=== PATIENT | female | born 1975 | race Caucasian/White ===

== ENCOUNTER 2016-04-21 16:13 | Emergency (ER) | payer OTHER ==
[~2016-04-21 16:13] MED LIST: METO25TA6 PO
[2016-04-21 16:28] VITALS: BP 165/89; PULSE 86; RESP 20; O2SAT 97
--- NOTE | 2016-04-21 17:35 | DRSVH ---
PROCEDURE: X-RAY LUMBAR SPINE, 2 OR 3 VIEW INDICATIONS: pain, worsening symptoms TECHNIQUE: 3 views of the lumbar spine were acquired. COMPARISON: None. FINDINGS: Bones: 5 [id number] vertebrae are present. There is normal bony alignment. No vertebral body c ompression fractures. No suspicious bony lesions. There is moderately severe degenerative disc dise ase and facet osteoarthritis at L5-S1, without subluxation. Osteophyte formation produces likelihood of significant spinal and foraminal stenosis at this level. Mild to moderate degenerative disc dise ase is present at L4-5. Soft tissues: Overlying bowel gas pattern is normal. No suspicious soft tissue calcifications. Joanna gical clips indicate prior cholecystectomy, note is made of a centrally positioned IUD overlying the pelvis. IMPRESSION: L4-5 and especially L5-S1 degenerative disc disease, with facet osteoarthritis, to the de gree that significant spinal and foraminal stenosis likely is present at least at L5-S1. Dictated by: Miky Corrigan M.D. on 04/21/2016 at 17:34 Approved by: Miky Corrigan M.D. on 04/21/2016 at 17:35
--- NOTE | 2016-04-21 18:43 | ED.REPORT ---
HPI-Back Pain 40 and Over Date of Service Apr 21, 2016 ED Provider: Thanh Madison PA-C Ritu is a otherwise healthy 40-year-old female recently diagnosed with degenerative disc disease at L5-S1 who presents with a chief complaint of lower back pain. She reports her pain in her lower back for the last day associated with radiation into her right leg. She reports that the top of her right foot and big toe feel numb. She has been seeing chiropractor for the last 2 weeks, but recently performed strenuous activity and and found that her back pain was much worse yesterday morning. She finds it very painful to sit or lie down. Denies saddle anesthesia, bowel/bladder dysfunction. Denies fever, chills, malaise, history of diabetes, immunosuppression, back surgery, implanted devices , recent IV drug use. Reports that she is currently being treated with Bactrim for UTI. Denies Nursing Notes Stated Complaint: SEVERE PAIN,LOWER BACK/RIGHT LEG Chief Complaint: Back Pain or Injury Nursing Notes Reviewed: Yes Allergies: Coded Allergies: codeine (Verified Allergy, Mild, Rash,Itching,, 04/21/16) promethazine HCl (Verified Allergy, Mild, Agitation, 04/21/16) Scheduled Prednisone (PredniSONE) 20 Mg Tablet 40 MG PO DAILY Scheduled PRN Metoprolol Tartrate (Metoprolol Tartrate) 25 Mg Tablet 25 MG PO BID PRN PRN palpitations use as needed for symptomatic palpitations oxyCODONE (oxyCODONE) 5 Mg Capsule 5 MG PO Q4H PRN PRN For Pain General Time Seen by MD: 18:41 Chief Complaint Back pain Sudden in Onset?: No Past Medical History Past Medical History Notes: Denies Past Medical History Anxiety attacks Reports: Obesity Past Surgical History Reports: Cholecystectomy Family History Mother and grandmother - early menopause Smoking History Unknown if Ever Smoker Social History Alcohol Use: Denies alcohol use Drug Use: Denies drug use Other Social History: Good social support Ambulatory Status Independent Review of Systems Review of Systems Note: Negative unless stated otherwise in history of present illness Physical Exam General: Well-appearing, obese, moderate distress. Head: Atraumatic, normocephalic. Eyes: No scleral icterus or injection. No discharge. Vision grossly intact. ENT: Voice clear, hearing grossly intact. Respiratory: No respiratory distress, no increased work of breathing. Speaks in complete sentences. Skin: Warm and dry. Neurological: Normal gait, toe walk, heel walk, Romberg. Patellar and Achilles reflexes present and equal B/L. Sensation to sharp touch intact at medial leg, dorsal foot and lateral foot B/L. negative straight leg raise, negative cross straight right leg raise Back: Normal to inspection, no midline spinous process tenderness, mild right SI joint tenderness. Psychological: alert and oriented. Speech appropriate, linear and logical. Behavior appropriate. Initial Vital Signs Vital Signs (First) Date Time Temp Pulse Resp B/P Pulse Ox O2 Delivery O2 Flow Rate FiO2 04/21/16 16:28 36.5 86 20 165/89 97 Room Air Initial VS: Reviewed, Vital signs normal Re-Eval/Medical Decision Med Decision/Clinical Course Otherwise healthy 40-year-old female with a recent diagnosis of degenerative disc disease at L5-S1 presents with lower back pain and right leg radiculopathy. Her pain has been aggravated the last 2 days by strenuous activity. History and physical are reassuring regarding cauda equina syndrome, epidural abscess, subdural hematoma, trauma. Neurological examination is normal. I believe the patient is stable and safe to be discharged home. Provided instructions for [id number] analgesia as well as a small amount of oxycodone to supplement with precautions. Advised primary care follow-up, provided return precautions. Patient under stands the plan and is comfortable with it. Discharge & Departure Impression: Primary Impression: Low back pain Chronicity: acute Back pain laterality: right Sciatica presence: with sciatica Sciatica laterality: sciatica of right side Qualified Code: M54.41 - Lumbago with sciatica, right side Disposition: Home Discharge Condition All VS Reviewed: Yes Condition: Stable Patient Instructions: Lumbar Radiculopathy (ED) Additional Instructions: Evaluation in the emergency department for lower back pain. History and physical are reassuring for emergent neurological condition such as epidural abscess or cauda equina syndrome. History does not suggest that this is likely to be a spinal fracture. Your neurological examination is normal, indicating there is no damage to the nerves in your back. I see no indication to perform additional imaging tests at this time. Treatment is largely symptomatic. Rest is important, especially for the next couple of days, but avoid total bed rest. Reasonable activity as tolerated is the best. Apply ice to the affected area 4 times a day for 20 minutes over the next 24 hours. After that you will probably find warm compresses most helpful. The pain is best treated with 800 mg of ibuprofen (Advil, Motrin) every 6 hours , or 1000 mg of acetaminophen (Tylenol) every 6 hours. These drugs can be taken at the same time for more severe pain. I will provide a prescription for a small amount of oxycodone which you can add to this. Please do not drive or drink alcohol within 4 hours taking this medication I have also given a dose of prednisone here in the emergency department. I am sending you home with a prescription for 4 more days of the same. This will reduce inflammation around the nerve that is causing you pain. Most of all be patient: 70-90% of people with injuries presenting like yours will resolve within 7 weeks, even without treatment. I will give you a referral for primary care provider. Please contact them tomorrow to arrange follow-up in the next week or so to be sure your recovery is progressing as expected. Return the emergency department for new or worsening symptoms such as loss of bowel/bladder control, numbness between your legs, new weakness/ numbness or high fever. Referrals: Gurwinder Perez MD EDSupervising Provider for APC: Fer Gilliam MD copies to: Gurwinder Perez MD, Seth PA-C Apr 21, 2016 18:43
[2016-04-21] MEDS ORDERED: OXYC5CAP4 PO (19:19)
[2016-04-21] MEDS ORDERED: PRE20 PO (19:20)
[2016-04-21] MEDS ORDERED: predniSONE 20 mg Tablet PO ONE (19:25)
[2016-04-21] MEDS ORDERED: Ketorolac 30 mg/mL 2 mL Inj IM ONE (19:25)
== END 2016-04-21 19:39 | disposition home or self-care (01) ==
LOC: SED 16:13
DX: M54.41 Lumbago with sciatica, right side (principal); Z88.5 Allergy status to narcotic agent; Z88.8 Allergy status to other drugs, medicaments and biological substances
CPT/HCPCS: 72100; 96372; 99284; J1885

== ENCOUNTER 2016-05-14 22:29 | Emergency (ER) | payer OTHER ==
[~2016-05-14] VITALS: Ht 165.1 cm; Wt 111.8 kg
[~2016-05-14 22:29] MED LIST changes: +OXYC5CAP4 PO; +PRE20 PO
[2016-05-14 22:42] VITALS: BP 149/65; PULSE 74; RESP 22; O2SAT 99
--- NOTE | 2016-05-14 22:43 | ED.REPORT ---
HPI-Back Pain 40 and Over Date of Service May 14, 2016 ED Provider: Christopher Shin MD A 40 year old female with a history of anxiety and degenerative disc disease at L5-S1 presents to the ED via EMS with lower back pain onset this evening while urinating. She has been experiencing similar pain for several weeks, but the pain tonight was much more severe. EMS found the patient with a BP of 214/98 and a respiration rate of 24. The patient denies numbness, paresthesia, weakness , bowel incontinence, urinary incontinence, recent injury/trauma to the area, or other symptoms. She took Tylenol (2000mg) and Naprosyn (1000mg) at 2100 this evening. She has also taken Oxycodone and Prednisone today. The patient was recently seen in the ED on 04/21/16 with similar symptoms. Nursing Notes Stated Complaint: BACK PAIN Chief Complaint: Back Pain or Injury Nursing Notes Reviewed: Yes Allergies: Coded Allergies: codeine (Verified Allergy, Mild, Rash,Itching,, 04/21/16) promethazine HCl (Verified Allergy, Mild, Agitation, 04/21/16) Scheduled Prednisone (PredniSONE) 20 Mg Tablet 40 MG PO DAILY Scheduled PRN Methocarbamol (Robaxin-750) 750 Mg Tablet 750 MG PO QID PRN PRN For Spasm Metoprolol Tartrate (Metoprolol Tartrate) 25 Mg Tablet 25 MG PO BID PRN PRN palpitations use as needed for symptomatic palpitations oxyCODONE (oxyCODONE) 5 Mg Capsule 5 MG PO Q4H PRN PRN For Pain oxyCODONE (oxyCODONE) 10 Mg Tablet 1-2 TAB PO Q4H PRN PRN For Pain General Time Seen by MD: 22:42 Chief Complaint Lumbar pain Hx Obtained From: Patient Arrived By: Ambulance Sudden in Onset?: Yes Onset Occurred: Just prior to arrival Symptom Duration: Since onset Caused by: Spontaneous/no mechanism Location: : Spinal lumbar area Quality: Painful Severity: Current: Moderate Severity: Maximum: Severe Associated with: Denies: Incontinence bladder, Incontinence bowel, Numbness both low ext, Tingling left lower ext, Tingling right lower ext, Weakness both lower ext Pertinent Negative: Relieved by nothing Recent Healthcare: Recent doctor visit Similar Sx Previous: Yes Past Medical History Past Medical History Anxiety attacks Degenerative disc disease at L5-S1 Reports: Obesity Past Surgical History Reports: Cholecystectomy Family History Mother and grandmother - early menopause Smoking History Unknown if Ever Smoker Social History Alcohol Use: Denies alcohol use Drug Use: Denies drug use Other Social History: Good social support Ambulatory Status Independent Review of Systems Review of Systems Note: - Paresthesia Constitutional: Denies: Fever Respiratory: Denies: Non-productive cough, Shortness of breath GI: Denies: Nausea, Vomiting Musculoskeletal: Reports: Back pain (Lower) Neurologic: Denies: Bladder dysfunction, Bowel dysfunction, Numbness, Weakness Complete sys rev & neg: except as marked. Physical Exam Initial Vital Signs Vital Signs (First) Date Time Temp Pulse Resp B/P Pulse Ox O2 Delivery O2 Flow Rate FiO2 05/14/16 22:42 36.5 74 22 149/65 99 Room Air Initial VS: Reviewed Head / Eyes: Atraumatic, Normocephalic ENT: Conjunctiva normal, No scleral icterus Neck: Supple, Full range of motion Skin: Warm, Dry, No cyanosis Psychiatric: Mood/affect normal, Behavior normal, Normal thought content General/Constitutional: Awake, Alert Distress / Hydration: Positive: Distress mild Respiratory / Chest: Breath sounds NL, Breath sounds = bilat, No respiratory distress Cardiovascular: Heart rate NL, Regular rhythm, Heart sounds NL Abdomen: Soft, Non-tender Obese Neurologic: Oriented X3, Speech NL, No motor deficits, No sensory deficits Lower Extremity / Pelvis / MS: Neurologic intact, Vascular intact Re-Eval/Medical Decision Med Decision/Clinical Course 40-year-old with chronic back pain presents with acute exacerbation with no particular trauma or exacerbant. Onset was upon sitting down on the commode. Pain radiates down the right leg but without numbness weakness bowel or bladder complaint. Her chronic sciatica has generally been right sided and she has known disc disease there at the L5-S1 level. No indication for imaging at this point. She declines any parenteral narcotics, as she has a history of opiate abuse in the past, more than ten years ago she has oral oxycodone at home but is afraid to use it. Last dose was at 3:00 in the afternoon. She has not repeated the dose since the onset of this acute pain. She is much improved after a dose of 15 mg here. Home now with oxycodone 10 mg #30 for one to two every four hours when necessary. Robaxin when necessary. Naprosyn twice a day. Follow-up with PCP. Prompt return if any radiculopathy symptoms develop. Source of Hx: Old records Re-Evaluation/Progress : Time of Eval: 23:58 Patient Status: Condition improved Re-Evaluation/Progress Note: Patient is feeling better and ready to be discharged. Additional physical exam performed. Discussed with patient physical exam findings, diagnosis, and plan for discharge. Follow-up and return to the ER instructions given. Patient agrees with plan for care and all questions were addressed. Counseled Regarding: Diagnosis, Need for follow-up, When/why to return to ED Discharge & Departure Shift Change Sign-Out Response to Therapy: Improved Impression: Primary Impression: Sciatica of right side associated with disorder of lumbar spine Disposition: Home Discharge Condition All VS Reviewed: Yes Condition: Improved Patient Instructions: Sciatica (ED) Additional Instructions: Bed rest, heat, and follow up with your doctor. Continue Naprosyn twice daily. You may use it briefly at three times daily. Increase your oxycodone to 10-20 mg every 4-6 hours as needed. Obviously, do not take increasing doses if you are already drowsy. Robaxin four times daily if additional relief needed. It is also sedating, so be careful not to take high doses of both oxycodone and Robaxin at the same time. Follow-up with your doctor in the office. Call tomorrow for follow-up visit. Seek immediate follow-up for any persistent numbness or weakness in the limb, or any bowel or bladder problems. Referrals: NOPCP (PCP) [facility] Prosper Attestation Portions of this note were transcribed by Emmy Rodriguez. I, Dr. Shin, personally performed the history, physical exam, and medical decision-making; I reviewed and confirmed the accuracy of the information in the transcribed note. Signed by: Prosper Tucker, 05/15/2016, 02:50 copies to: [facility] Christopher Shin MD May 14, 2016 22:43 EMMY RODRIGUEZ May 14, 2016 22:54
[2016-05-14] MEDS ORDERED: Dexamethasone 20 mg/2 mL Oral Solution PO ONE (22:55)
[2016-05-15] MEDS ORDERED: OXYC10TA8 PO (00:07)
[2016-05-15] MEDS ORDERED: METH-313 PO (00:07)
[2016-05-15 01:04] VITALS: BP 136/78; PULSE 72; RESP 14; O2SAT 97
== END 2016-05-15 00:30 | disposition home or self-care (01) ==
LOC: EDUNIT# 22:29 → EDBD 22:29 → SED 22:29
DX: M51.17 Intervertebral disc disorders with radiculopathy, lumbosacral region (principal); Z88.5 Allergy status to narcotic agent; Z88.8 Allergy status to other drugs, medicaments and biological substances

== ENCOUNTER 2016-08-09 05:16 | Emergency (ER) | payer OTHER ==
[~2016-08-09] VITALS: Ht 165.1 cm; Wt 118.2 kg
[~2016-08-09 05:16] MED LIST changes: +METH-313 PO; +OXYC10TA8 PO
[2016-08-09 05:20] VITALS: BP 163/86; PULSE 61; RESP 16; O2SAT 98
--- NOTE | 2016-08-09 06:10 | ED.REPORT ---
HPI-Extremity Problem Upper Date of Service Aug 09, 2016 ED Provider: Pietro Heller DO Pt is a 40 y/o female w/ a hx of right shoulder bursitis and tendinopathy, prior opiate abuse currently on 2.5 mg Oxycodone, presenting to the ED c/o right shoulder pain secondary to injury 3 days ago. The patient was wrestling with her son and seemed to injure her right shoulder. Since then she has been experiencing pain. She received an intraarticular cortisone shot 1 day ago but her pain has worsened. She has not had a cortisone shot previously. She c/o associated radiating numbness and tingling down the right arm to the fingers. Medications taken so far this morning include Oxycodone 5 mg, Naproxen 500 mg, and 1000 mg Tylenol. She rates her pain as severe and waking her up from sleep. Pt denies fever, chills, extremity weakness, CP, SOB, rash. She has been seen for right shoulder pain multiple times previously and in 11/24/12 had an MRI performed which was interpreted as "1. Minimal acromioclavicular joint degeneration and mild lateral downsloping of the acromion with mild subacromial/ subdeltoid bursitis. 2. Mild tendinopathy of the supraspinatus with minimal bursal sided irregularity but no high-grade tear.". She has a history of prior opiate abuse. Nursing Notes Stated Complaint: RT SHOULDER PAIN Chief Complaint: Extremity Trauma Nursing Notes Reviewed: Yes Allergies: Coded Allergies: codeine (Verified Allergy, Mild, Rash,Itching,, 04/21/16) promethazine HCl (Verified Allergy, Mild, Agitation, 04/21/16) Scheduled Prednisone (PredniSONE) 20 Mg Tablet 40 MG PO DAILY Scheduled PRN Methocarbamol (Robaxin-750) 750 Mg Tablet 750 MG PO QID PRN PRN For Spasm Metoprolol Tartrate (Metoprolol Tartrate) 25 Mg Tablet 25 MG PO BID PRN PRN palpitations use as needed for symptomatic palpitations oxyCODONE (oxyCODONE) 5 Mg Capsule 5 MG PO Q4H PRN PRN For Pain oxyCODONE (oxyCODONE) 10 Mg Tablet 1-2 TAB PO Q4H PRN PRN For Pain General Time Seen by MD: 06:04 Chief Complaint Shoulder injury right Hx Obtained From: Patient Arrived By: Walk-in Onset Occurred: 3 days ago Symptom Duration: Since onset Location: : Shoulder right Quality: Painful Severity: Current: Moderate Severity: Maximum: Moderate Exacerbated by: Range of motion Recent Healthcare: Recent doctor visit Similar Sx Previous: No Past Medical History Past Medical History Anxiety attacks Degenerative disc disease at L5-S1 causing right-sided sciatica Right shoulder bursitis and mild tendinopathy Reports: Obesity Past Surgical History Back surgery Reports: Cholecystectomy Family History Mother and grandmother - early menopause Smoking History Unknown if Ever Smoker Social History Former opiate abuse Alcohol Use: Denies alcohol use Drug Use: In recovery Other Social History: Good social support Ambulatory Status Independent Review of Systems Constitutional: Denies: Chills, Fever Musculoskeletal: Reports: Extremity pain, Joint pain Skin: Denies Rash, Denies Swelling Neurologic: Reports: Numbness, Denies: Focal weakness, Weakness Complete sys rev & neg: except as marked. Respiratory: Denies: Non-productive cough, Shortness of breath Cardiovascular: Denies: Chest pain, Dyspnea on exertion GI: Denies: Abdominal pain, Vomiting Physical Exam Initial Vital Signs Vital Signs (First) Date Time Temp Pulse Resp B/P Pulse Ox O2 Delivery O2 Flow Rate FiO2 08/09/16 05:20 36.2 61 16 163/86 98 Room Air Initial VS: Reviewed, Vital signs abnormal Head / Eyes: Atraumatic, Normocephalic, PERRL ENT: Mucous membranes moist, Conjunctiva normal, No scleral icterus Neck: Supple, Full range of motion Abdomen / GI: Soft, No distention Skin: Warm, Dry, No cyanosis Neurologic: Alert, Oriented, Nonfocal Psychiatric: Mood/affect normal, Behavior normal, Normal thought content General/Constitutional: Awake, Alert, Cooperative, Not toxic appearing Distress / Hydration: Positive: Distress moderate Behavior: Positive: Tearful Appearance / Presentation: Positive: In pain, Uncomfortable Upper Extremity / MS: Atraumatic, No swelling, No erythema, No deformity, Neurologic intact, Vascular intact, No compartment syndrome, No clubbing/ cyanosis, No edema RUE: Tenderness over the deltoid area. No focal bony tenderness. ROM with forward flexion and abduction at 90 degrees. Subtle paresthesia to the radial side of forearm and over the dorsum of the hand over the thumb. No signs of infection Multiple parallel scars consistent with self-inflicting cutting wounds Re-Eval/Medical Decision Med Decision/Clinical Course Likely a exacerbation of her shoulder, no high-risk features. Recommend better pain management. Patient has oxycodone at home. Return and follow-up precautions given Source of Hx: Old records Re-Evaluation/Progress : Time of Eval: 07:10 Patient Status: Condition improved, Moderate relief, Pain improved Re-Evaluation/Progress Note: Pt rechecked. Informed pt of plan for treatment. Pt understands and agrees with plan for treatment. F/U instructions and RTER warnings given. All questions addressed. Counseled Regarding: Diagnosis, Need for follow-up, When/why to return to ED Discharge & Departure Impression: Primary Impression: Right shoulder pain Chronicity: acute Qualified Code: M25.511 - Pain in right shoulder Disposition: Home Discharge Condition All VS Reviewed: Yes Condition: Stable Additional Instructions: I suspect your injury caused an exacerbation of your shoulder pain. Increase your oxycodone to 5 mg at a time. Continue your other medications. Follow-up with your primary care doctor next week if your symptoms persist. Return to the emergency department if you experience uncontrolled pain, fever, chills, rash, swelling, warmth, worsening numbness, significant weakness of your arm, or for other concerning symptoms. Referrals: Stef Aranda MD (PCP) Mary Aliceibe Attestation Portions of this note were transcribed by Chacorta Oneil. I, Dr. Heller personally performed the history, physical exam and medical decision-making; I reviewed and confirmed the accuracy of the information in the transcribed note. Signed by Prosper Dillon, 08/09/16 45 copies to: Stef Aranda MD, Timothy Deb HEMPHILL Aug 09, 2016 06:10 CHACORTA ONEIL Aug 09, 2016 06:21
[2016-08-09] MEDS ORDERED: oxyCODONE-Acetamin 5-325 mg Tablet PO ONE (06:35)
== END 2016-08-09 07:12 | disposition home or self-care (01) ==
LOC: SED 05:16
DX: M25.511 Pain in right shoulder (principal); X50.1XXA Overexertion from prolonged static or awkward postures, initial encounter; Y92.9 Unspecified place or not applicable; Y93.72 Activity, wrestling; Y99.8 Other external cause status; R20.2 Paresthesia of skin; M75.51 Bursitis of right shoulder; M75.81 Other shoulder lesions, right shoulder; E66.9 Obesity, unspecified; F11.21 Opioid dependence, in remission; Z87.891 Personal history of nicotine dependence; Z79.891 Long term (current) use of opiate analgesic; Z68.41 Body mass index [BMI] 40.0-44.9, adult; Z88.5 Allergy status to narcotic agent; Z88.8 Allergy status to other drugs, medicaments and biological substances
CPT/HCPCS: 96372; 99283; J1885